=== PATIENT | female | born 1995 ===

== ENCOUNTER 2020-10-17 12:37 | Emergency (ER) | payer MEDICAID, SELFPAY ==
[2020-10-17 12:51] VITALS: BP 141/86; PULSE 110; RESP 18; TEMP 37.2; O2SAT 97; BMI 29.2
[2020-10-17] MEDS: Metoclopramide HCl 10 MG/2 ML VIAL IVPUSH (14:25)
[2020-10-17] MEDS: Acetaminophen 325 MG TABLET 650 MG PO (14:25)
[2020-10-17] MEDS: 0.9 % Sodium Chloride 1,000 ML 999 ML IVCONT (14:25)
[2020-10-17] MEDS: diphenhydrAMINE HCL 50 MG/ML VIAL 25 MG IVPUSH (14:25)
[2020-10-17 14:32] LABS: MANUAL DIFF FLAG NO
[2020-10-17 14:34] LABS: Glucose Urine UA NEG (NEG); Leukocyte Esterase Urine NEG (NEG); Nitrite Urine NEG (NEG); Specific Gravity - Urine 1.025 (1.005-1.025); Urine Blood 1+ (NEG); Urine Ketones >=80 MG/DL (NEG); Urine Protein TRACE MG/DL (NEG-TRACE)
[2020-10-17 14:35] LABS: Appearance Urine HAZY; Basophils Percent Auto 0.2 % (0-2); Color Urine AMBER; Hematocrit 38.9 % (37-47); Hemoglobin 13.4 g/dl (12.0-16.0); Imm Gran Abs Auto 0.03 X10*3/uL (0.00-0.03); Imm Gran Pct Auto 0.5 % (0.0-0.4); Lymphocytes Absolute Auto 1.9 X10*3/uL (1.2-4.9); Mean Corpuscular HGB Conc 34.4 g/dl (31.0-35.0); Mean Corpuscular Volume 75.5 fL (80-98); Mean Platelet Volume 9.4 fL (9.4-12.3); Monocytes Absolute Auto 0.6 X10*3/uL (0.1-1.2); Neutrophils Absolute Auto 3.7 X10*3/uL (2.0-8.3); Neutrophils Percent Auto 59.3 % (45-73); Platelet Count 310 X10*3/uL (160-400); Red Blood Count 5.15 X10*6/uL (4.20-5.50); Red Cell Distribution Width 12.7 % (11.0-16.0); White Blood Count 6.2 X10*3/uL (4.8-10.8)
--- NOTE | 2020-10-17 14:35 | ED.GENADULT ---
HPI - General Adult General Chief complaint: General Medical Stated complaint: fever,nausea Time Seen by Provider: 10/17/20 13:10 History of Present Illness HPI narrative: patient last normal menstrual per aide 4 weeks ago with multiple complaints First complaint is intermittent nausea and vomiting over the last 2 weeks 2nd complaint is she has a history of migraine and her migraine has been triggered with intermittent headache coming and going over the last several days , pattern and head of headache is similar to prior migraine, no thunderclap headache, no worst headache of life 3rd complaint over last several days she has had low-grade fever coming and going with no cough no runny nose no sore throat and she has had a negative COVID test Related Data Previous Rx's Medication Instructions Recorded doxylamine-pyridoxine (vit B6) 1 tab PO DAILY #14 tab 10/17/20 [Diclegis] doxylamine-pyridoxine (vit B6) 1 tab PO DAILY #14 tab 10/17/20 [Diclegis] ondansetron HCl [Zofran] 4 mg PO Q6H PRN #10 tab 10/17/20 ondansetron HCl [Zofran] 4 mg PO Q6H PRN #10 tab 10/17/20 Allergies Allergy/AdvReac Type Severity Reaction Status Date / Time No Known Allergies Allergy Unverified 06/03/20 19:26 [No Known Allergies*] Review of Systems Review of Systems: Positive for headache nausea vomiting fever and chills No dizziness no weakness, no vision changes no neck pain no stiff neck no ear pain no sore throat no runny nose no chest pain no shortness of breath no cough, no abdominal pain but there is nausea and vomiting, no diarrhea, no urinary symptoms no burning with urination no frequency, no leg swelling no calf pain, no numbness or weakness, no rash [facility] Past Medical History Attestation statement: The following information was validated with the patient. [facility] Narrative: Patient is , LMP 4 weeks ago Social History Social History Advance Directives: No Advance Directives Information Provided: No Physical Exam Vital Signs: Vital Signs: Last Vital Signs Temp 98.9 F 10/17/20 12:51 Pulse 110 H 10/17/20 12:51 Resp 18 10/17/20 12:51 BP 141/86 H 10/17/20 12:51 Pulse Ox 97 10/17/20 12:51 Body Mass Index 29.2 General appearance is comfortable cooperative no acute distress The head is normocephalic atraumatic the ears are clear The pharynx is normal in appearance with well-hydrated mucous membranes The neck is supple no meningismus The chest is clear to auscultation bilaterally with full symmetric equal breath sounds The heart rate and rhythm regular, no murmur The abdomen is soft nontender The extremities no edema, full range of motion x4 The skin no rash Neuro is appropriate understanding and conversation, gait is normal, cranial nerves 2-12 are intact as tested, cerebellar and balance are normal, motor is 5/5 x4 and sensation is intact and symmetrical Course Course Course Narrative: COVID testing was negative Patient who is in early 1st weeks of who has been nauseous and vomiting which triggered her migraine which was the same pattern as previous migraines felt significantly better after treatment was tolerating p.o. and was discharged feeling better, headache was gone and she was provided information to obtain care Medical Decision Making Lab Data Lab results reviewed: Yes I reviewed the patient's lab results. Result diagrams: 10/17/20 14:22 10/17/20 14:22 Labs: Lab Results 10/17/20 10/17/20 10/17/20 Range/Units 14:22 14:22 14:22 WBC 6.2 (4.8-10.8) X10*3/uL RBC 5.15 (4.20-5.50) X10*6/uL Hgb 13.4 (12.0-16.0) g/dl Hct 38.9 (37-47) % MCV 75.5 L (80-98) fL MCH 26.0 L (27.0-33.0) pg MCHC 34.4 (31.0-35.0) g/dl RDW 12.7 (11.0-16.0) % Plt Count 310 (160-400) X10*3/uL MPV 9.4 (9.4-12.3) fL Immature Gran % (Auto) 0.5 H (0.0-0.4) % Neut % (Auto) 59.3 (45-73) % Lymph % (Auto) 31.0 (20-40) % [place] % (Auto) 9.0 (2-11) % Eos % (Auto) 0.0 (0-4) % Baso % (Auto) 0.2 (0-2) % Lymph # (Auto) 1.9 (1.2-4.9) X10*3/uL [place] # (Auto) 0.6 (0.1-1.2) X10*3/uL Eos # (Auto) 0.0 (0.0-0.4) X10*3/uL Baso # (Auto) 0.0 (0.0-0.2) X10*3/uL Abs Immat Gran (auto) 0.03 (0.00-0.03) X10*3/uL Absolute Neuts (auto) 3.7 (2.0-8.3) X10*3/uL Absolute Nucleated RBC 0.000 (0.0-0.012) X10*3/uL Nucleated RBC % (auto) 0.0 (0.0-0.2) /100WBC Sodium 136 (135-145) mmol/L Potassium 3.8 (3.3-5.1) mmol/L Chloride 102 (96-108) mmol/L Carbon Dioxide 23 (22-29) mmol/L Anion Gap 15 (12-20) BUN 9 (9-16) mg/dL Creatinine 0.73 (0.5-1.4) mg/dL Estim Creat Clear Calc 121.5 Estimated GFR > 60 Random Glucose 83 (60-115) mg/dL Calcium 9.0 (8.4-10.2) mg/dL Urine Color Urine Appearance Urine pH (5.0-8.0) Ur Specific [place] (1.005-1.025) Urine Protein (NEG-TRACE) MG/DL Urine Glucose (UA) (NEG) MG/DL Urine Ketones (NEG) MG/DL Urine Blood (NEG) Urine Nitrite (NEG) Ur Leukocyte Esterase (NEG) Urine RBC (0) /HPF Urine WBC (0-4) /HPF Ur Squamous Epith Cells /LPF Urine Bacteria /LPF Urine Mucus /LPF Urine Test (NEGATIVE) Coronavirus (PCR) NEGATIVE (Negative) Influenza Type A (PCR) NEGATIVE (Negative) Influenza Type B (PCR) NEGATIVE (Negative) RSV RNA Qual (PCR) NEGATIVE (Negative) 10/17/20 Range/Units 14:22 WBC (4.8-10.8) X10*3/uL RBC (4.20-5.50) X10*6/uL Hgb (12.0-16.0) g/dl Hct (37-47) % MCV (80-98) fL MCH (27.0-33.0) pg MCHC (31.0-35.0) g/dl RDW (11.0-16.0) % Plt Count (160-400) X10*3/uL MPV (9.4-12.3) fL Immature Gran % (Auto) (0.0-0.4) % Neut % (Auto) (45-73) % Lymph % (Auto) (20-40) % [place] % (Auto) (2-11) % Eos % (Auto) (0-4) % Baso % (Auto) (0-2) % Lymph # (Auto) (1.2-4.9) X10*3/uL [place] # (Auto) (0.1-1.2) X10*3/uL Eos # (Auto) (0.0-0.4) X10*3/uL Baso # (Auto) (0.0-0.2) X10*3/uL Abs Immat Gran (auto) (0.00-0.03) X10*3/uL Absolute Neuts (auto) (2.0-8.3) X10*3/uL Absolute Nucleated RBC (0.0-0.012) X10*3/uL Nucleated RBC % (auto) (0.0-0.2) /100WBC Sodium (135-145) mmol/L Potassium (3.3-5.1) mmol/L Chloride (96-108) mmol/L Carbon Dioxide (22-29) mmol/L Anion Gap (12-20) BUN (9-16) mg/dL Creatinine (0.5-1.4) mg/dL Estim Creat Clear Calc Estimated GFR Random Glucose (60-115) mg/dL Calcium (8.4-10.2) mg/dL Urine Color PERRY Urine Appearance HAZY Urine pH 6.0 (5.0-8.0) Ur Specific [place] 1.025 (1.005-1.025) Urine Protein TRACE (NEG-TRACE) MG/DL Urine Glucose (UA) NEG (NEG) MG/DL Urine Ketones >=80 (NEG) MG/DL Urine Blood 1+ H (NEG) Urine Nitrite NEG (NEG) Ur Leukocyte Esterase NEG (NEG) Urine RBC 1-4 (0) /HPF Urine WBC 1-4 (0-4) /HPF Ur Squamous Epith Cells 1+ /LPF Urine Bacteria 1+ /LPF Urine Mucus 1+ /LPF Urine Test POSITIVE H (NEGATIVE) Coronavirus (PCR) (Negative) Influenza Type A (PCR) (Negative) Influenza Type B (PCR) (Negative) RSV RNA Qual (PCR) (Negative) Discharge Plan Discharge Clinical Impression: Hyperemesis gravidarum, Headache Patient Disposition: Home, Self-Care Additional Instructions: Use Tylenol as needed for headache pain or any fevers Follow with midwives or gynecology for care Her COVID test was negative Return any time any worse condition or any concerns Prescriptions: New doxylamine-pyridoxine (vit B6) [Diclegis] 10-10 mg tablet,delayed release (DR/EC) 1 tab PO DAILY Qty: 14 RF: 0 ondansetron HCl [Zofran] 4 mg tablet 4 mg PO Q6H PRN (Reason: nausea and vomiting) Qty: 10 RF: 0 doxylamine-pyridoxine (vit B6) [Diclegis] 10-10 mg tablet,delayed release (DR/EC) 1 tab PO DAILY Qty: 14 RF: 0 ondansetron HCl [Zofran] 4 mg tablet 4 mg PO Q6H PRN (Reason: nausea and vomiting) Qty: 10 RF: 0 Referrals: Stefani Palmer MD [Physician] - 2 days (hyperemesis, care) Stand Alone Forms: Work/School Release Interventions: ED Discharge Assessment Last Done: 10/17/20 15:59 Discharge Date/Time: 10/17/20 16:00
[2020-10-17 14:36] LABS: UPreg QC Valid YES; Urine Pregnancy POSITIVE (NEGATIVE)
[2020-10-17 14:40] LABS: Bacteria Urine 1+ /LPF; Mucus Urine 1+ /LPF; Squamous Epithelial Cell Urine 1+ /LPF
[2020-10-17 14:56] LABS: Anion Gap 15 (12-20); Blood Urea Nitrogen 9 mg/dL (9-16); Carbon Dioxide 23 mmol/L (22-29); Chloride 102 mmol/L (96-108); Creatinine Clr Calc Pharmacy 121.5; Estimated Glomerular Filt Rate > 60; Glucose Random 83 mg/dL (60-115); Potassium 3.8 mmol/L (3.3-5.1); Sodium 136 mmol/L (135-145)
[2020-10-17 15:13] LABS: Influenza A PCR NEGATIVE (Negative); Influenza B PCR NEGATIVE (Negative); Resp Syncy Virus RNA Qual PCR NEGATIVE (Negative); SARS COV2 PCR INHOUSE NEGATIVE (Negative)
== END 2020-10-17 16:00 | disposition home or self-care (01) ==
PROVIDERS: Physician Assistant Medical; Emergency Provider Emergency Medicine; PCP Internal Medicine
DX: O21.0 Mild hyperemesis gravidarum (principal); R50.9 Fever, unspecified; R51.9 Headache, unspecified; Z79.899 Other long term (current) drug therapy; Z20.822 Contact with and (suspected) exposure to COVID-19; Z3A.01 Less than 8 weeks gestation of pregnancy
CPT/HCPCS: 0241U; 36415; 80048; 81001; 81025; 85025; 96361; 96374; 96375; 99283; 99284; J1200; J2765

== ENCOUNTER 2020-10-27 15:24 | Emergency (ER) | payer MEDICAID, SELFPAY ==
--- NOTE | ~2020-10-27 | US_ITS ---
EXAMINATION: US OB transvaginal, US OB <= 14 weeks fetus CLINICAL INFORMATION: Bleeding, cramping TECHNIQUE: Transabdominal and transvaginal images of the pelvis were obtained. FINDINGS: UTERUS: Anteverted. Normal size and contour, measuring 7.2 x 2.7 x 3.3 cm (cervix to fundus x AP x transverse). Uniform, homogeneous endometrium measures 0.7 cm in width. A small 3 mm fluid collection is seen eccentrically in the endometrial canal. No definite decidual reaction.. No yolk sac or embryo. Based on the last menstrual period of 09/10/2020, the clinical age is 6 weeks 5 days, clinical CHARISMA 06/17/2021. RIGHT OVARY: Normal size and echogenicity measuring 2.1 x 1.7 x 1.7 cm. LEFT OVARY: Normal size and echogenicity measuring 2.4 x 1.4 x 2.4 cm. FREE FLUID: No pelvic free fluid. US/US OB transvaginal IMPRESSION: No definite intrauterine identified. There is a small 3 mm fluid collection eccentrically in the endometrial canal but there is no definite decidual reaction. Recommend correlation with the certainty of the patient's dates. Given the positive test, this is considered a of indeterminate location and an ectopic remains a consideration.
--- NOTE | ~2020-10-27 | US_ITS ---
EXAMINATION: US OB transvaginal, US OB <= 14 weeks fetus CLINICAL INFORMATION: Bleeding, cramping TECHNIQUE: Transabdominal and transvaginal images of the pelvis were obtained. FINDINGS: UTERUS: Anteverted. Normal size and contour, measuring 7.2 x 2.7 x 3.3 cm (cervix to fundus x AP x transverse). Uniform, homogeneous endometrium measures 0.7 cm in width. A small 3 mm fluid collection is seen eccentrically in the endometrial canal. No definite decidual reaction.. No yolk sac or embryo. Based on the last menstrual period of 09/10/2020, the clinical age is 6 weeks 5 days, clinical CHARISMA 06/17/2021. RIGHT OVARY: Normal size and echogenicity measuring 2.1 x 1.7 x 1.7 cm. LEFT OVARY: Normal size and echogenicity measuring 2.4 x 1.4 x 2.4 cm. FREE FLUID: No pelvic free fluid. US/US OB <= 14 weeks fetus IMPRESSION: No definite intrauterine identified. There is a small 3 mm fluid collection eccentrically in the endometrial canal but there is no definite decidual reaction. Recommend correlation with the certainty of the patient's dates. Given the positive test, this is considered a of indeterminate location and an ectopic remains a consideration.
[2020-10-27 15:45] VITALS: BP 125/79; PULSE 115; RESP 20; TEMP 36.7; O2SAT 97; BMI 29.2
[2020-10-27 18:17] VITALS: BP 122/85; PULSE 115; RESP 18; TEMP 37; O2SAT 98
--- NOTE | 2020-10-27 18:28 | ED.PREGNANCY ---
HPI - General Chief complaint: Vaginal Bleeding Stated complaint: Vaginal bleeding/6 wks preg Time Seen by Provider: 10/27/20 18:06 Source: patient Mode of arrival: ambulatory Limitations: no limitations History of Present Illness HPI Narrative: 24 y/o female G1 who is currently 7 weeks is presenting to the ED c/o vaginal bleeding and cramping that started about 8 hours ago. She states it started as mild spotting and now the bleeding has increased. No passage of clots or tissue. She reports cramping similar to menstrual cramps. She also reports she has had fevers up to 103 for the last 2 weeks. She has had 4 negative COVID tests and blood workup done twice (last yesterday). She was due to see her OB on Sunday. She called them today with reports of bleeding and cramping and she was told to come to the ER for evaluation. MD Complaint: vaginal bleeding Onset (ago): hour(s) (8) Pain Consistency: intermittent Location: pelvis Severity: moderate Quality: Cramping Relieving factors: none Exacerbating factors: none Associated symptoms: nausea and vaginal bleeding Vaginal discharge: none Vaginal bleeding: heavy Patient : Yes care: followed by OB Related Data Previous Rx's Medication Instructions Recorded doxylamine-pyridoxine (vit B6) 1 tab PO DAILY #14 tab 10/17/20 [Diclegis] doxylamine-pyridoxine (vit B6) 1 tab PO DAILY #14 tab 10/17/20 [Diclegis] ondansetron HCl [Zofran] 4 mg PO Q6H PRN #10 tab 10/17/20 ondansetron HCl [Zofran] 4 mg PO Q6H PRN #10 tab 10/17/20 Allergies Allergy/AdvReac Type Severity Reaction Status Date / Time No Known Allergies Allergy Unverified 06/03/20 19:26 [No Known Allergies*] Review of Systems Review of Systems: Constitutional: + Fever, + Chills Cardiovascular: No Chest Pain, No SOB, No Orthopnea, No Edema Respiratory: No Cough, No Sputum, No Wheezing, No dyspnea Gastrointestinal: No Nausea, No Vomiting, No Diarrhea, + abdominal Pain, No Hematochezia, No Melena Genitourinary: No Dysuria, No Urinary Frequency, No Hematuria, +vaginal bleeding Musculoskeletal: No joint pain, No Myalgias Skin: No Skin Lesions, No rash Neuro: No Weakness, No Numbness, No Dizziness, No Headache Psych: + Anxiety/Panic, No Depression Heme/Lymph: No Bruising, No Lymphadenopathy Endocrine: No Polyuria, No Polydipsia PMF Past Medical History Medical History (Updated 10/27/20 @ 20:38 by NIALL Peter) No known health problems Physical Exam Vital Signs: Vital Signs: Last Vital Signs Temp 99.8 F 10/27/20 20:00 Pulse 119 H 10/27/20 20:00 Resp 18 10/27/20 20:00 BP 134/80 10/27/20 20:00 Pulse Ox 97 10/27/20 20:00 Body Mass Index 29.2 Appearance: Alert. Oriented X3. Anxious and tearful. Eyes: Pupils equal, round and reactive to light. ENT: Pharynx normal. Neck: Normal inspection. Neck supple. CVS: Normal heart rate and rhythm. Pulses normal. Respiratory: No respiratory distress. Breath sounds normal. Abdomen: Soft and nontender. +BS x4 Skin: Skin warm and dry. Normal skin color. Normal skin turgor. No rashes. Extremities: No lower extremity edema. Neuro: Oriented X 3. No motor deficit. No sensory deficit. Course Course Course Narrative: 24 y/o G1 with LMP 12/25 (~7 weeks ) presenting with bleeding and cramping. Probable spontaneous . HCG at outpatient clinic today was 80 --> today is 100 which is more consistent with at 3-4 weeks. Will get OB U/S to assess for IUP or retained products of conception. Reevaluation(s) Reevaluation #1: US showing 3mm fluid collection in endometrial canal but no definite decidual reaction. Given the + test this is considered a of indeterminate location and an ectopic remains a consideration. Doubt ectopic given patient's pain is cramping, central and intermittent similar to menstrual cramps. Will discuss case with Dr. Longoria. Reevaluation #2: Dr. Longoria recommends repeat HCG quant prior to appointment with her OB on Sunday afternoon. Lab slip provided to patient as well as warning signs to prompt return to the ER. She expressed understanding and is stable for discharge. Consultations Consultation #1: OBGYN - Dr. Longoria MDM - OB/Uterine Contractions Lab Data Result diagrams: 10/27/20 18:31 10/27/20 18:31 Labs: Lab Results 10/27/20 10/27/20 10/27/20 Range/Units 17:28 18:31 18:31 WBC 7.3 (4.8-10.8) X10*3/uL RBC 4.99 (4.20-5.50) X10*6/uL Hgb 13.0 (12.0-16.0) g/dl Hct 37.3 (37-47) % MCV 74.7 L (80-98) fL MCH 26.1 L (27.0-33.0) pg MCHC 34.9 (31.0-35.0) g/dl RDW 13.0 (11.0-16.0) % Plt Count 413 H D (160-400) X10*3/uL MPV 9.1 L (9.4-12.3) fL Immature Gran % (Auto) 0.7 H (0.0-0.4) % Neut % (Auto) 54.6 (45-73) % Lymph % (Auto) 35.8 (20-40) % [place] % (Auto) 8.5 (2-11) % Eos % (Auto) 0.3 (0-4) % Baso % (Auto) 0.1 (0-2) % Lymph # (Auto) 2.6 (1.2-4.9) X10*3/uL [place] # (Auto) 0.6 (0.1-1.2) X10*3/uL Eos # (Auto) 0.0 (0.0-0.4) X10*3/uL Baso # (Auto) 0.0 (0.0-0.2) X10*3/uL Abs Immat Gran (auto) 0.05 H (0.00-0.03) X10*3/uL Absolute Neuts (auto) 4.0 (2.0-8.3) X10*3/uL Absolute Nucleated RBC 0.000 (0.0-0.012) X10*3/uL Nucleated RBC % (auto) 0.0 (0.0-0.2) /100WBC PT 14.7 H (10.8-13.0) SEC INR 1.2 H (0.9-1.1) APTT 35.9 (24.1-38.0) SEC Sodium (135-145) mmol/L Potassium (3.3-5.1) mmol/L Chloride (96-108) mmol/L Carbon Dioxide (22-29) mmol/L Anion Gap (12-20) BUN (9-16) mg/dL Creatinine (0.5-1.4) mg/dL Estim Creat Clear Calc Estimated GFR Random Glucose (60-115) mg/dL Lactic Acid (0.5-2.0) mmol/L Calcium (8.4-10.2) mg/dL Beta HCG, Quant 103 mIU/mL Urine Color Urine Appearance Urine pH (5.0-8.0) Ur Specific [place] (1.005-1.025) Urine Protein (NEG-TRACE) MG/DL Urine Glucose (UA) (NEG) MG/DL Urine Ketones (NEG) MG/DL Urine Blood (NEG) Urine Nitrite (NEG) Ur Leukocyte Esterase (NEG) Urine RBC (0) /HPF Urine WBC (0-4) /HPF Ur Squamous Epith Cells /LPF Urine Bacteria /LPF Urine Test (NEGATIVE) Blood Type Antibody Screen 10/27/20 10/27/20 10/27/20 Range/Units 18:31 18:33 18:45 WBC (4.8-10.8) X10*3/uL RBC (4.20-5.50) X10*6/uL Hgb (12.0-16.0) g/dl Hct (37-47) % MCV (80-98) fL MCH (27.0-33.0) pg MCHC (31.0-35.0) g/dl RDW (11.0-16.0) % Plt Count (160-400) X10*3/uL MPV (9.4-12.3) fL Immature Gran % (Auto) (0.0-0.4) % Neut % (Auto) (45-73) % Lymph % (Auto) (20-40) % [place] % (Auto) (2-11) % Eos % (Auto) (0-4) % Baso % (Auto) (0-2) % Lymph # (Auto) (1.2-4.9) X10*3/uL [place] # (Auto) (0.1-1.2) X10*3/uL Eos # (Auto) (0.0-0.4) X10*3/uL Baso # (Auto) (0.0-0.2) X10*3/uL Abs Immat Gran (auto) (0.00-0.03) X10*3/uL Absolute Neuts (auto) (2.0-8.3) X10*3/uL Absolute Nucleated RBC (0.0-0.012) X10*3/uL Nucleated RBC % (auto) (0.0-0.2) /100WBC PT (10.8-13.0) SEC INR (0.9-1.1) APTT (24.1-38.0) SEC Sodium 137 (135-145) mmol/L Potassium 4.1 (3.3-5.1) mmol/L Chloride 102 (96-108) mmol/L Carbon Dioxide 24 (22-29) mmol/L Anion Gap 15 (12-20) BUN 9 (9-16) mg/dL Creatinine 0.75 (0.5-1.4) mg/dL Estim Creat Clear Calc 118.2 Estimated GFR > 60 Random Glucose 93 (60-115) mg/dL Lactic Acid 0.8 (0.5-2.0) mmol/L Calcium 9.0 (8.4-10.2) mg/dL Beta HCG, Quant mIU/mL Urine Color YELLOW Urine Appearance HAZY Urine pH 5.5 (5.0-8.0) Ur Specific [place] 1.025 (1.005-1.025) Urine Protein TRACE (NEG-TRACE) MG/DL Urine Glucose (UA) NEG (NEG) MG/DL Urine Ketones NEG (NEG) MG/DL Urine Blood 3+ H (NEG) Urine Nitrite NEG (NEG) Ur Leukocyte Esterase NEG (NEG) Urine RBC 15-29 H (0) /HPF Urine WBC 0 (0-4) /HPF Ur Squamous Epith Cells 1+ /LPF Urine Bacteria 1+ /LPF Urine Test POSITIVE H (NEGATIVE) Blood Type Antibody Screen 10/27/20 Range/Units 18:45 WBC (4.8-10.8) X10*3/uL RBC (4.20-5.50) X10*6/uL Hgb (12.0-16.0) g/dl Hct (37-47) % MCV (80-98) fL MCH (27.0-33.0) pg MCHC (31.0-35.0) g/dl RDW (11.0-16.0) % Plt Count (160-400) X10*3/uL MPV (9.4-12.3) fL Immature Gran % (Auto) (0.0-0.4) % Neut % (Auto) (45-73) % Lymph % (Auto) (20-40) % [place] % (Auto) (2-11) % Eos % (Auto) (0-4) % Baso % (Auto) (0-2) % Lymph # (Auto) (1.2-4.9) X10*3/uL [place] # (Auto) (0.1-1.2) X10*3/uL Eos # (Auto) (0.0-0.4) X10*3/uL Baso # (Auto) (0.0-0.2) X10*3/uL Abs Immat Gran (auto) (0.00-0.03) X10*3/uL Absolute Neuts (auto) (2.0-8.3) X10*3/uL Absolute Nucleated RBC (0.0-0.012) X10*3/uL Nucleated RBC % (auto) (0.0-0.2) /100WBC PT (10.8-13.0) SEC INR (0.9-1.1) APTT (24.1-38.0) SEC Sodium (135-145) mmol/L Potassium (3.3-5.1) mmol/L Chloride (96-108) mmol/L Carbon Dioxide (22-29) mmol/L Anion Gap (12-20) BUN (9-16) mg/dL Creatinine (0.5-1.4) mg/dL Estim Creat Clear Calc Estimated GFR Random Glucose (60-115) mg/dL Lactic Acid (0.5-2.0) mmol/L Calcium (8.4-10.2) mg/dL Beta HCG, Quant mIU/mL Urine Color Urine Appearance Urine pH (5.0-8.0) Ur Specific [place] (1.005-1.025) Urine Protein (NEG-TRACE) MG/DL Urine Glucose (UA) (NEG) MG/DL Urine Ketones (NEG) MG/DL Urine Blood (NEG) Urine Nitrite (NEG) Ur Leukocyte Esterase (NEG) Urine RBC (0) /HPF Urine WBC (0-4) /HPF Ur Squamous Epith Cells /LPF Urine Bacteria /LPF Urine Test (NEGATIVE) Blood Type O Positive Antibody Screen NEGATIVE Critical Care Time Critical Care Time Critical Care Time: No Discharge Plan Discharge Clinical Impression: Threatened Patient Disposition: Home, Self-Care Instructions: Threatened Miscarriage (ED) Additional Instructions: Follow up with your [employer] PRO[employer] MANAGER Sunday as schedule. Your hormone today was 103. It is important to trend this level - recommend getting a repeat level tomorrow so your doctor can have this information for your appointment. Lab slip was provided for the lab here. Call your doctor in the morning, they may want blood drawn at their clinic. If you have worsening pain come back to the ER for further evaluation of possible ectopic . Prescriptions: No Action doxylamine-pyridoxine (vit B6) [Diclegis] 10-10 mg tablet,delayed release (DR/EC) 1 tab PO DAILY Qty: 14 RF: 0 ondansetron HCl [Zofran] 4 mg tablet 4 mg PO Q6H PRN (Reason: nausea and vomiting) Qty: 10 RF: 0 doxylamine-pyridoxine (vit B6) [Diclegis] 10-10 mg tablet,delayed release (DR/EC) 1 tab PO DAILY Qty: 14 RF: 0 ondansetron HCl [Zofran] 4 mg tablet 4 mg PO Q6H PRN (Reason: nausea and vomiting) Qty: 10 RF: 0 Interventions: ED Discharge Assessment Last Done: 10/27/20 20:52 Discharge Date/Time: 10/27/20 20:53
[2020-10-27 18:31] LABS: HCG Quantitative 103 mIU/mL
[2020-10-27 18:37] LABS: MANUAL DIFF FLAG NO
[2020-10-27 18:39] LABS: Glucose Urine UA NEG (NEG); Leukocyte Esterase Urine NEG (NEG); Nitrite Urine NEG (NEG); PH 5.5 (5.0-8.0); Specific Gravity - Urine 1.025 (1.005-1.025); Urine Blood 3+ (NEG); Urine Ketones NEG (NEG); Urine Protein TRACE MG/DL (NEG-TRACE)
[2020-10-27 18:40] LABS: Basophils Percent Auto 0.1 % (0-2); Eosinophils Percent Auto 0.3 % (0-4); Hematocrit 37.3 % (37-47); Imm Gran Abs Auto 0.05 X10*3/uL (0.00-0.03); Imm Gran Pct Auto 0.7 % (0.0-0.4); Lymphocytes Absolute Auto 2.6 X10*3/uL (1.2-4.9); Lymphocytes Percent Auto 35.8 % (20-40); Mean Corpuscular HGB Conc 34.9 g/dl (31.0-35.0); Mean Corpuscular Hemoglobin 26.1 pg (27.0-33.0); Mean Corpuscular Volume 74.7 fL (80-98); Mean Platelet Volume 9.1 fL (9.4-12.3); Monocytes Absolute Auto 0.6 X10*3/uL (0.1-1.2); Monocytes Percent Auto 8.5 % (2-11); Neutrophils Percent Auto 54.6 % (45-73); Platelet Count 413 X10*3/uL (160-400); Red Blood Count 4.99 X10*6/uL (4.20-5.50); White Blood Count 7.3 X10*3/uL (4.8-10.8)
[2020-10-27 18:42] LABS: Appearance Urine HAZY; Color Urine YELLOW; UPreg QC Valid YES; Urine Pregnancy POSITIVE (NEGATIVE)
[2020-10-27 18:47] LABS: INTERNATIONAL NORM RATIO 1.2 (0.9-1.1); Prothrombin Time 14.7 SEC (10.8-13.0)
[2020-10-27 18:47] LABS: Bacteria Urine 1+ /LPF; Squamous Epithelial Cell Urine 1+ /LPF; WBC Urine 0 /HPF (0-4)
[2020-10-27 18:49] LABS: Partial Thromboplastin Time 35.9 SEC (24.1-38.0)
[2020-10-27 19:03] LABS: Anion Gap 15 (12-20); Blood Urea Nitrogen 9 mg/dL (9-16); Carbon Dioxide 24 mmol/L (22-29); Chloride 102 mmol/L (96-108); Creatinine Clr Calc Pharmacy 118.2; Estimated Glomerular Filt Rate > 60; Glucose Random 93 mg/dL (60-115); Potassium 4.1 mmol/L (3.3-5.1); Sodium 137 mmol/L (135-145)
[2020-10-27 19:14] LABS: Lactic Acid 0.8 mmol/L (0.5-2.0)
[2020-10-27] MEDS: Acetaminophen 325 MG TABLET 975 MG PO (19:55)
[2020-10-27 20:00] VITALS: BP 134/80; PULSE 119; RESP 18; TEMP 37.7; O2SAT 97
--- NOTE | 2020-10-27 20:19 | PM.GYNCN ---
CHLORINE CELL TENDER - CN: HPI Data of Consult Consult date: 10/27/20 Primary Care Provider: Harriet Varma MD Consult Narrative Narrative: Consulted by NIALL Peter on Rxoana Mcginnis is a 24 year old female who presented emergency room with abdominal cramping and mild vaginal bleeding. According to the patient she had an HCG done in the office today was 80 repeat hCG in the emergency room was 100, H and H within normal ultrasound no evidence of intrauterine or adnexal masses could not rule out ectopic cc:: CC: VOCATIONAL PSYCHOLOGIST - Review of Systems Review of Systems ROS Unobtainable: All systems reviewed & are unremarkable except as noted in HPI and below Cardiovascular: Denies Palpatations, Loss of consciousness and Chest pain Respiratory: Denies Cough, Wheezing and Shortness of breath Musculoskeletal: Denies Low back pain Gastrointestinal: Denies Heartburn, Constipation, Diarrhea, Nausea and Vomiting Genitourinary: Denies Pain with urination, Burning with urination and Urinary frequency Neurological: Denies Migranes Psychological: Denies Depression OB [facility] Past Medical History Medical History (Updated 10/27/20 @ 20:23 by Joe Longoria MD) No known health problems Social History Social History Smoked in Last 30 Days: No Use of substances other than those prescribed or required for medical reasons: No Advance Directives: No Advance Directives Information Provided: Yes Meds Allergies Allergy/AdvReac Type Severity Reaction Status Date / Time No Known Allergies Allergy Unverified 06/03/20 19:26 [No Known Allergies*] CHLORINE CELL TENDER Physical Exam Vitals Vital signs: Temp Pulse Resp BP Pulse Ox 99.8 F 119 H 18 134/80 97 10/27/20 20:00 10/27/20 20:00 10/27/20 20:00 10/27/20 20:00 10/27/20 20:00 Body Mass Index 29.2 CHLORINE CELL TENDER - Results Labs CBC & Chem 7: 10/27/20 18:31 10/27/20 18:31 Labs: Short CBC 10/27/20 Range/Units 18:31 WBC 7.3 (4.8-10.8) X10*3/uL Hgb 13.0 (12.0-16.0) g/dl Hct 37.3 (37-47) % Plt Count 413 H D (160-400) X10*3/uL BMP 10/27/20 18:31 Sodium 137 Potassium 4.1 Chloride 102 Carbon Dioxide 24 BUN 9 Creatinine 0.75 Calcium 9.0 Urine 10/27/20 Range/Units 18:33 Urine Color YELLOW Urine Appearance HAZY Urine pH 5.5 (5.0-8.0) Ur Specific [place] 1.025 (1.005-1.025) Urine Protein TRACE (NEG-TRACE) MG/DL Urine Glucose (UA) NEG (NEG) MG/DL Urine Test POSITIVE H (NEGATIVE) Antibody Screen Antibody Screen NEGATIVE 10/27/20 18:45 Assessment and Plan (1) Early stage of : Status: Acute Discussed this case with NIALL Proctor, recommended repeat hCG in 48 hours and follow up in OBGYN office, SAB and ectopic warnings to be given the patient she is to call cramping vaginal bleeding or abdominal pain occurs. If hCG is going down it is consistent with SAB if it is going follow-up hCG with the rate of rise to rule out ectopic . Blood type is positive.
== END 2020-10-27 20:53 | disposition home or self-care (01) ==
PROVIDERS: Physician Assistant; Emergency Provider Emergency Medicine; PCP Specialist
DX: O20.0 Threatened abortion (principal); Z3A.01 Less than 8 weeks gestation of pregnancy
CPT/HCPCS: 36415; 76801; 76817; 80048; 81001; 81025; 83605; 84702; 85025; 85610; 85730; 86850; 86900; 86901; 87040; 99283; 99284

== ENCOUNTER 2021-02-23 22:43 | Emergency (ER) | payer MEDICAID, SELFPAY ==
--- NOTE | 2021-02-23 | ECG_ITS ---
Test Reason : CHEST PAIN Blood Pressure : / mmHG Vent. Rate : 117 BPM Atrial Rate : 117 BPM P-R Int : 128 ms QRS Dur : 072 ms QT Int : 314 ms P-R-T Axes : 058 083 024 degrees QTc Int : 438 ms Sinus tachycardia Otherwise normal ECG No previous ECGs available Referred By: Spencer Meyer Electronically Signed By:MAUDE MCLAIN MD
[2021-02-23 23:33] VITALS: BP 127/72; PULSE 106; RESP 18; TEMP 37.2; O2SAT 100; BMI 25.7
--- NOTE | 2021-02-24 01:24 | ED_ITS ---
HPI - Extremity Injury (Lower) General Chief Complaint: Extremity Injury, Lower Stated Complaint: lupus flare up Time Seen by Provider: 02/24/21 01:24 Source: patient Mode of arrival: ambulatory Limitations: no limitations History of Present Illness HPI Narrative: Patient with lupus panniculitis with known history. She has had these flares before. Now with large area to her left calf that is swollen and painfult Severity: moderate Relieving factors: nothing Exacerbating factors: nothing Related Data Previous Rx's Medication Instructions Recorded doxylamine-pyridoxine (vit B6) 1 tab PO DAILY #14 tab 10/17/20 [Diclegis] doxylamine-pyridoxine (vit B6) 1 tab PO DAILY #14 tab 10/17/20 [Diclegis] ondansetron HCl [Zofran] 4 mg PO Q6H PRN #10 tab 10/17/20 ondansetron HCl [Zofran] 4 mg PO Q6H PRN #10 tab 10/17/20 prednisone 60 mg PO DAILY #30 tab 02/24/21 Allergies Allergy/AdvReac Type Severity Reaction Status Date / Time No Known Allergies Allergy Unverified 06/03/20 19:26 [No Known Allergies*] Review of Systems Constitutional: Constitutional: Reports no additional constitutional complain ts Eyes: Eyes: Reports no additional eye complaints ENT: Denies dizziness Cardiovascular: Cardiovascular: Reports no additional cardiovascular complaints Respiratory: Respiratory: Reports as per HPI Gastrointestinal: Gastrointestinal: Reports no additional gastrointestinal complaints Genitourinary: Genitourinary: Reports no additional female genitourinary complaints Musculoskeletal: Musculoskeletal: Reports no additional musculoskeletal complaints Integumentary/Breasts: Skin/Breast: Denies rash Neurologic: Reports system reviewed and no additional complaints, except as documented, Denies dizziness and Denies Sensory deficit (Neuro) Psychiatric: Psychiatric: Denies anxiety PMFSH Past Medical History Medical History No known health problems Social History Social History Advance Directives: No Advance Directives Information Provided: No Patient : No Physical Exam Vital Signs: Vital Signs: Last Vital Signs Temp 99.0 F 02/23/21 23:33 Pulse 106 H 06/09/21 23:33 Resp 18 02/23/21 23:33 BP 127/72 02/23/21 23:33 Pulse Ox 100 02/23/21 23:33 Body Mass Index 25.7 Const: General: healthy appearing Nutritional Appearance: average body habitus Orientation/consciousness: oriented to person and patient oriented x3 Limitations: no limitations HENMT: Head: Yes normal to inspection Ears: external ears normal General nose exam: Normal external nose present Mouth: Normal oral and palatal mucosa present and oropharynx normal Throat: Yes posterior oropharynx normal Eyes: General: appearance normal, both eyes and all related structures Neck: Other: supple Neck: Yes normal visual inspection Chest: Chest palpation & inspection: normal inspection of the chest Resp: Auscultation: clear to auscultation bilaterally Cardio: Jugular venous distension: no JVD Rate: regular rate Rhythm: regular rhythm Heart sounds: S1 normal heart sound present and S2 normal heart sound present GI: Inspection: Yes normal to inspection Palpation (GI): Soft to palpation, nontender and No hepatosplenomegaly present Auscultation: normal bowel sounds : General: Yes no CVA tenderness Back/Spine/Pelvis: Back: no CVA tenderness Skin: Other: Induration of right calf, right shoulder, buttock and thighs. areas are tender and violacious Lesions: lesion noted Rashes: rashes noted Neuro: General: oriented to person and patient oriented x3 Cranial nerves: Yes CN's II-XII intact bilaterally Motor exam (neuro): 5/5 motor strength present throughout Sensory Exam: No Sensory deficit (Neuro) Extrem: General: Yes normal to inspection Psych: Appearance: grossly normal MDM - Extremity Injury (Lower) ECG Data Attestation: I personally reviewed and interpreted this ECG as follows: Interpretation: sinus tachycardia rate 115, no st or twave changes Discharge Plan Discharge Clinical Impression: Lupus (systemic lupus erythematosus) Qualifiers: Systemic lupus erythematosus type: other Systemic lupus erythematosus organ involvement: other Qualified Code(s): M32.19 - Other organ or system involvement in systemic lupus erythematosus Patient Disposition: Home, Self-Care Instructions: Lupus Erythematosus (DC) Prescriptions: New prednisone 20 mg tablet 60 mg PO DAILY Qty: 30 RF: 0 No Action doxylamine-pyridoxine (vit B6) [Diclegis] 10-10 mg tablet,delayed release (DR/EC) 1 tab PO DAILY Qty: 14 RF: 0 ondansetron HCl [Zofran] 4 mg tablet 4 mg PO Q6H PRN (Reason: nausea and vomiting) Qty: 10 RF: 0 doxylamine-pyridoxine (vit B6) [Diclegis] 10-10 mg tablet,delayed release (DR/EC) 1 tab PO DAILY Qty: 14 RF: 0 ondansetron HCl [Zofran] 4 mg tablet 4 mg PO Q6H PRN (Reason: nausea and vomiting) Qty: 10 RF: 0 Referrals: Jorge Varma MD [Primary Care Provider] - 2 days
[2021-02-24] MEDS: predniSONE 20 MG TABLET 60 MG PO (01:58)
== END 2021-02-24 02:07 | disposition home or self-care (01) ==
PROVIDERS: Emergency Provider Emergency Medicine; PCP Internal Medicine
DX: M32.19 Other organ or system involvement in systemic lupus erythematosus (principal); R00.0 Tachycardia, unspecified
CPT/HCPCS: 93005; 99283

== ENCOUNTER 2022-01-08 17:26 | Emergency (ER) | payer MEDICAID, SELFPAY ==
[2022-01-08 17:33] VITALS: BP 139/79; PULSE 84; RESP 18; TEMP 36.9; O2SAT 96; BMI 28.3
[2022-01-08 20:29] VITALS: BP 137/74; PULSE 90; RESP 16; TEMP 37.4; O2SAT 100
--- NOTE | 2022-01-08 20:36 | ED.HA ---
HPI - Headache General Chief Complaint: Headache Stated Complaint: migraines for 3 days/dizziness Time Seen by Provider: 01/08/22 20:36 Source: patient Mode of arrival: ambulatory Limitations: no limitations History of Present Illness HPI Narrative: Patient with History of lupus and migraine headache been having headache for last 3 days associated with nausea vomited 2 time today no fever no respiratory symptom no chest pain no abdominal pain no urinary symptoms no joint pains Related Data Previous Rx's Medication Instructions Recorded doxylamine 10 mg-pyridoxine (vit 1 tab PO DAILY #14 tab 10/17/20 B6) 10 mg tablet,delayed release (Diclegis) doxylamine 10 mg-pyridoxine (vit 1 tab PO DAILY #14 tab 10/17/20 B6) 10 mg tablet,delayed release (Diclegis) ondansetron HCl 4 mg tablet 4 mg PO Q6H PRN #10 tab 10/17/20 (Zofran) ondansetron HCl 4 mg tablet 4 mg PO Q6H PRN #10 tab 10/17/20 (Zofran) prednisone 20 mg tablet 60 mg PO DAILY #30 tab 02/24/21 gezxtxkxfo-ssyglpmvsgtpn-oiikezhf 1 cap PO Q6H PRN #20 cap 01/08/22 50 mg-300 mg-40 mg capsule (Fioricet) Allergies Allergy/AdvReac Type Severity Reaction Status Date / Time No Known Allergies Allergy Unverified 01/08/22 17:33 [No Known Allergies*] Review of Systems Review of Systems: Yes all other systems are reviewed and are negative PMFSH Past Medical History Medical History Lupus No known health problems Social History Social History Alcohol intake: current Alcohol intake frequency: holidays/special occasions only Patient Tobacco Use Status: Never used Tobacco Use of substances other than those prescribed or required for medical reasons: Yes Substance Use Type: Marijuana Substance Use Frequency: Occasionally Advance Directives: No Advance Directives Information Provided: No Physical Exam Vital Signs: Vital Signs: Last Vital Signs Temp 99.3 F 01/08/22 20:29 Pulse 90 01/08/22 20:29 Resp 16 01/08/22 20:29 BP 137/74 01/08/22 20:29 Pulse Ox 100 01/08/22 20:29 BMI result Body Mass Index 28.3 Appearance: Alert. Oriented X3. No acute distress. Eyes: PERRLA, No Nystagmus ENT: Pharynx normal. Oral Mucosa moist no temporal artery tenderness Neck: Normal inspection. Neck supple. CVS: Normal heart rate and rhythm. Pulses normal. Respiratory: No respiratory distress. Equal air entry bilateral, no wheezing/rales/rhonchi Abdomen: Soft and nontender. Bowel sounds are present, Skin: Skin warm and dry. Normal skin color. Normal skin turgor. Extremities: No lower extremity edema. No calf tenderness Neuro: Oriented X 3. No motor deficit. No sensory deficit.No cerebellar signs , cranial nerves II-XII intact MDM - Headache MDM Narrative Medical decision making narrative: Patient feeling much better now still seeing the IV fluids will discharge her home once the fluids finished Lab Data Attestation: I reviewed the patient's lab results. Labs: Lab Results 01/08/22 01/08/22 Range/Units 21:32 21:33 Urine Color YELLOW Urine Appearance CLEAR Urine pH 6.0 (5.0-8.0) Ur Specific [place] >= 1.030 H (1.005-1.025) Urine Protein 1+ H (NEG-TRACE) MG/DL Urine Glucose (UA) NEG (NEG) MG/DL Urine Ketones 40 (NEG) MG/DL Urine Blood NEG (NEG) Urine Nitrite NEG (NEG) Ur Leukocyte Esterase NEG (NEG) Urine RBC 1-4 (0) /HPF Urine WBC 1-4 (0-4) /HPF Ur Squamous Epith Cells 2+ /LPF Urine Bacteria 4+ /LPF Urine Mucus 2+ /LPF Urine Test NEGATIVE (NEGATIVE) Discharge Plan Discharge Clinical Impression: Migraine Patient Disposition: Home, Self-Care Instructions: Migraine Headache (ED) Additional Instructions: Rest at home Medicine as advised Follow with PCP if not better Prescriptions: New kpnvneacyw-dpapqsnmcajsq-qdve [Fioricet] 50-300-40 mg capsule 1 cap PO Q6H PRN (Reason: headache) Qty: 20 0RF No Action doxylamine-pyridoxine (vit B6) [Diclegis] 10-10 mg tablet,delayed release (DR/EC) 1 tab PO DAILY Qty: 14 0RF ondansetron HCl [Zofran] 4 mg tablet 4 mg PO Q6H PRN (Reason: nausea and vomiting) Qty: 10 0RF doxylamine-pyridoxine (vit B6) [Diclegis] 10-10 mg tablet,delayed release (DR/EC) 1 tab PO DAILY Qty: 14 0RF ondansetron HCl [Zofran] 4 mg tablet 4 mg PO Q6H PRN (Reason: nausea and vomiting) Qty: 10 0RF prednisone 20 mg tablet 60 mg PO DAILY Qty: 30 0RF
[2022-01-08] MEDS: Ondansetron ODT 4 MG TAB.RAPDIS TRANSLINGU (21:18)
[2022-01-08] MEDS: Ketorolac Tromethamine 60 MG/2 ML VIAL IM (21:45)
[2022-01-08 21:47] LABS: UPreg QC Valid YES; Urine Pregnancy NEGATIVE (NEGATIVE)
[2022-01-08 21:47] LABS: Appearance Urine CLEAR; Color Urine YELLOW; Glucose Urine UA NEG (NEG); Leukocyte Esterase Urine NEG (NEG); Nitrite Urine NEG (NEG); Specific Gravity - Urine >= 1.030 (1.005-1.025); UACC Culture Trigger NO; Urine Blood NEG (NEG); Urine Ketones 40 MG/DL (NEG); Urine Protein 1+ MG/DL (NEG-TRACE)
[2022-01-08 22:00] LABS: Bacteria Urine 4+ /LPF; Mucus Urine 2+ /LPF; Squamous Epithelial Cell Urine 2+ /LPF
[2022-01-08] MEDS: 0.9 % Sodium Chloride 1,000 ML 999 ML IV (22:53)
[2022-01-08] MEDS: dexAMETHasone sod phosphate 10 MG/ML VIAL IVPUSH (22:54)
[2022-01-08] MEDS: diphenhydrAMINE HCL 50 MG/ML VIAL 25 MG IVPUSH (22:54)
[2022-01-09 00:01] VITALS: BP 132/80; PULSE 86; RESP 16; O2SAT 100
[2022-01-09 00:20] VITALS: BP 126/74; PULSE 86; RESP 20; O2SAT 99
--- NOTE | 2022-01-09 00:20 | PC.NURSE ---
pt discharged, instrutions given, verbalized understanding. pt alert and oriented. left ambulatory independently. denies any pain. IV removed
== END 2022-01-09 00:22 | disposition home or self-care (01) ==
PROVIDERS: Emergency Provider Internal Medicine; PCP Internal Medicine
DX: G43.909 Migraine, unspecified, not intractable, without status migrainosus (principal); Z79.899 Other long term (current) drug therapy
CPT/HCPCS: 81001; 81025; 96361; 96372; 96374; 96375; 99284; J1100; J1200; J1885

== ENCOUNTER 2024-07-24 20:17 | Emergency (ER) | payer MEDICAID, SELFPAY ==
--- NOTE | ~2024-07-24 | XR_ITS ---
EXAMINATION: XR CHEST CLINICAL INFORMATION: Chest pain. COMPARISON: None available. TECHNIQUE: 2 views of the chest were obtained. FINDINGS: The heart is normal in size. Both lungs are clear. No pleural effusion. No pneumothorax. No acute osseous abnormality. XR/XR chest 2V IMPRESSION: No acute cardiopulmonary disease. Electronically signed by: Cortes Anne DO 07/24/2024 10:37 PM [facility] [place]
[2024-07-24 20:24] VITALS: BP 129/80; PULSE 122; RESP 18; TEMP 37.1; O2SAT 98; BMI 28.8
--- NOTE | 2024-07-24 20:27 | ED.GENADULT ---
HPI - General Adult General Chief complaint: Upper Respiratory Symptoms Stated complaint: Laryngitis Time Seen by Provider: 07/24/24 22:09 Source: patient, RN notes reviewed and old records reviewed Mode of arrival: ambulatory Limitations: no limitations History of Present Illness ED Provider: Ana HPI narrative: 28-year-old female with past medical history significant for lupus presents for evaluation of body aches, subjective fevers and chills. Patient reports that she was diagnosed with lupus about 2 years ago. She does follow with rheumatology. She has been on hydroxychloroquine for the last 2 years but discontinued this about 2 months ago at the advice of her dye box operator. She reports over last 24 hours she has had body aches, subjective fevers and chills, left-sided chest pain, shortness of breath and loss of voice She reports that she had similar symptoms about a year ago when she was told that she had a lupus flare and reports that she feels similar She denies any sick contacts. She has no other complaints or concerns at this time The patient reports that she has restarted her hydroxychloroquine today as her dye box operator told her to restarted if she starts to feel unwell Related Data Previous Rx's ?Medication ?Instructions ?Recorded doxylamine 10 mg-pyridoxine (vit 1 tab PO DAILY #14 tabs 10/17/20 B6) 10 mg tablet,delayed release (Diclegis) doxylamine 10 mg-pyridoxine (vit 1 tab PO DAILY #14 tabs 10/17/20 B6) 10 mg tablet,delayed release (Diclegis) ondansetron HCl 4 mg tablet 4 mg PO Q6H PRN nausea and 10/17/20 (Zofran) vomiting #10 tabs ondansetron HCl 4 mg tablet 4 mg PO Q6H PRN nausea and 10/17/20 (Zofran) vomiting #10 tabs prednisone 20 mg tablet 60 mg (3 x 20 mg) PO DAILY #30 tabs 02/24/21 odyinjqcla-lifzhgqnjgmnw-qhxkourq 1 cap PO Q6H PRN headache #20 caps 01/08/22 50 mg-300 mg-40 mg capsule (Fioricet) prednisone 20 mg tablet 20 mg PO DAILY #5 tabs 07/24/24 Allergies Allergy/AdvReac Type Severity Reaction Status Date / Time No Known Allergies Allergy Verified 07/24/24 20:26 [No Known Allergies*] Review of Systems Constitutional: Constitutional: Reports body ache(s), Denies chills, Reports fatigue, Reports fever(s), Reports headache(s) and Denies snoring Eyes: Eyes: Denies blurry vision ENT: Denies vertigo, Denies dizziness and Reports headache(s) Cardiovascular: Cardiovascular: Reports chest pain and Reports dyspnea Respiratory: Respiratory: Reports cough, Reports dyspnea, Denies snoring, Denies stridor and Denies wheezing Gastrointestinal: Gastrointestinal: Denies abdominal pain, Reports diarrhea, Denies nausea and Denies vomiting Musculoskeletal: Musculoskeletal: Denies back pain and Reports myalgias Integumentary/Breasts: Skin/Breast: Denies rash Neurologic: Denies vertigo, Denies dizziness and Reports headache(s) Psychiatric: Psychiatric: Denies anxiety Endocrine: Endocrine: Reports fatigue Allergic/Immunologic: Allergic/Immunologic: Denies wheezing PMFSH Past Medical History Medical History Lupus No known health problems Social History Social History Alcohol intake: never Patient Tobacco Use Status: Never used Tobacco Substance Use Type: Marijuana Physical Exam ED Vital Signs: Vital Signs - 24 hr 07/24/24 20:24 07/24/24 22:04 Temperature 98.8 F 98.1 F Pulse Rate 122 H 93 Respiratory Rate 18 16 Blood Pressure 129/80 119/81 Pulse Oximetry 98 100 Oxygen Delivery Method Room Air Room Air BMI result Body Mass Index 28.8 Const General: healthy appearing, comfortable, no acute distress, alert and awake Nutritional Appearance: well nourished Orientation/consciousness: patient oriented x3 HENMT Head: Yes normocephalic and Yes atraumatic Throat: Yes posterior oropharynx normal Eyes Eyelids: Yes eyelids normal Conjunctivae: conjunctivae normal Sclerae: sclerae normal Corneas: corneas normal Pupils: Equal, round and reactive pupils present EOM: EOMs intact bilaterally Neck Neck: Yes full ROM Resp Effort & Inspection: normal respiratory effort, able to speak in complete sentences, no audible wheezes and not labored Auscultation: clear to auscultation bilaterally Cardio Rate: regular rate Rhythm: regular rhythm GI Inspection: No distended Palpation (GI): Soft to palpation, not firm, nontender, no guarding and not rigid Skin General skin exam: elasticity normal Neuro General: patient oriented x3 Cranial nerves: Yes CN's II-XII intact bilaterally, Yes Equal, round and reactive pupils present and Yes Bilaterally intact EOM present Cognition (Neuro): normal cognition Extrem Other: Moving all extremities well without any obvious deformities Course Course Course Narrative: This is an RME: Additional HPI, ROS, PE not included below will be deferred to primary provider. RME assessment and note performed by: Bianka Brandon PA-C This is a [id number]-female, with a hx of lupus, who presents to the ER with complaints of chest pain, shortness of breath, vomiting, and diarrhea since yesterday. Tylenol at 11AM. Plan: Labs, EKG, chest x-ray, further ER evaluation needed Medical Decision Making Medical Decision Making [facility] Narrative: 28-year-old female presents for evaluation of flu-like symptoms. She reports she feels similar to when she was previously diagnosed with lupus flare. Her labs show a slight leukocytosis with a left shift. Chemistries without any significant abnormalities warranting intervention. The patient is not . Chest x-ray shows no focal infiltrates or pneumonia, she is negative for influenza, COVID-19. Her EKG is sinus tachycardia but otherwise unremarkable, no evidence of ST segment elevation AK. her symptoms are consistent with viral syndrome versus lupus flare, I feel it is appropriate to treat her with a short course of prednisone as this would be indicated in both instances Differential Diagnosis Differential Diagnoses: The differential diagnosis associated with the presentation includes Viral syndrome Pneumonia Laryngitis Bronchitis Lupus flare Lab Data [facility] Lab Attestation statement: I reviewed the patient's lab results. See above 07/24/24 20:53 07/24/24 20:53 Labs: Lab Results 07/24/24 Range/Units 20:53 WBC 12.5 H (4.8-10.8) X10*3/uL RBC 4.91 (4.20-5.50) X10*6/uL Hgb 13.9 (12.0-16.0) g/dl Hct 37.1 (37.0-47.0) % MCV 75.6 L (80.0-98.0) fL MCH 28.3 (27.0-33.0) pg MCHC 37.5 H (31.0-35.0) g/dl RDW 13.0 (11.0-16.0) % Plt Count 331 (160-400) X10*3/uL MPV 10.5 (9.4-12.3) fL Immature Gran % (Auto) 0.4 (0.0-0.4) % Neut % (Auto) 77.2 H (45-73) % Lymph % (Auto) 17.5 L (20-40) % Bartholomew % (Auto) 4.6 (2-11) % Eos % (Auto) 0.1 (0-4) % Baso % (Auto) 0.2 (0-2) % Lymph # (Auto) 2.2 (1.2-4.9) X10*3/uL Bartholomew # (Auto) 0.6 (0.1-1.2) X10*3/uL Eos # (Auto) 0.0 (0.0-0.4) X10*3/uL Baso # (Auto) 0.0 (0.0-0.2) X10*3/uL Abs Immat Gran (auto) 0.05 H (0.00-0.03) X10*3/uL Absolute Neuts (auto) 9.7 H (2.0-8.3) x10*3/uL Absolute Nucleated RBC 0.000 (0.0-0.012) X10*3/uL Nucleated RBC % (auto) 0.0 (0.0-0.2) /100WBC PT 11.7 (10.9-12.4) SEC INR 1.0 (0.9-1.1) Sodium 139 (135-145) mmol/L Potassium 3.5 (3.3-5.1) mmol/L Chloride 108 (96-108) mmol/L Carbon Dioxide 19 L (22-29) mmol/L Anion Gap 16 (12-20) BUN 10 (9-16) mg/dL Creatinine 0.70 (0.5-1.4) mg/dL Estim Creat Clear Calc 121.5 Estimated GFR > 60 Random Glucose 85 (60-115) mg/dL Lactic Acid 1.3 (0.5-2.0) mmol/L Calcium 9.2 (8.4-10.2) mg/dL Magnesium 1.9 (1.6-2.6) mg/dL Total Bilirubin 0.4 (0.0-1.0) mg/dL Direct Bilirubin 0.1 (0.0-0.5) mg/dL AST 34 H (5-31) U/L ALT 26 (0-31) U/L Alkaline Phosphatase 58 (39-117) U/L Troponin I High Sens < 2.7 (<3.5-17.0) ng/L Total Protein 7.5 (6.5-8.0) g/dL Albumin 4.3 (3.5-5.0) g/dL Beta HCG, Quant < 2 mIU/mL Influenza Type A (PCR) NEGATIVE (Negative) Influenza Type B (PCR) NEGATIVE (Negative) RSV RNA Qual (PCR) NEGATIVE (Negative) SARS-CoV-2 RNA (RT-PCR) NEGATIVE (Negative) Independent Interpretation I performed an independent interpretation of an: EKG (Sinus tachycardia) and Plain X-Ray (No focal infiltrates) Radiology Impression Discussion of test interpretation with radiology: I have reviewed the radiologist's reading. Radiologist Impression: FINDINGS: The heart is normal in size. Both lungs are clear. No pleural effusion. No pneumothorax. No acute osseous abnormality. XR/XR chest 2V IMPRESSION: No acute cardiopulmonary disease. Electronically signed by: Cortes Anne DO 07/24/2024 10:37 PM [facility] [place] Discharge Plan Discharge Clinical Impression: Body aches Patient Disposition: Home, Self-Care Instructions: Lupus Erythematosus (DC), Viral Syndrome (ED) Additional Instructions: Your workup in the ER today was reassuring. This includes your labs, viral swabs and chest x-ray. Your symptoms could be related to a virus versus a lupus flare Either way I recommend taking prednisone 20 mg daily for the next 5 days. Continue your hydroxychloroquine and follow-up with your specialist and primary doctor Prescriptions: New prednisone 20 mg tablet 20 mg PO DAILY Qty: 5 0RF No Action doxylamine-pyridoxine (vit B6) [Diclegis] 10-10 mg tablet,delayed release (DR/EC) 1 tab PO DAILY Qty: 14 0RF ondansetron HCl [Zofran] 4 mg tablet 4 mg PO Q6H PRN (Reason: nausea and vomiting) Qty: 10 0RF doxylamine-pyridoxine (vit B6) [Diclegis] 10-10 mg tablet,delayed release (DR/EC) 1 tab PO DAILY Qty: 14 0RF ondansetron HCl [Zofran] 4 mg tablet 4 mg PO Q6H PRN (Reason: nausea and vomiting) Qty: 10 0RF prednisone 20 mg tablet 60 mg PO DAILY Qty: 30 0RF xmowcdkirr-wyzoulvubsznc-dcon [Fioricet] 50-300-40 mg capsule 1 cap PO Q6H PRN (Reason: headache) Qty: 20 0RF Print Language: Welsh
--- NOTE | 2024-07-24 20:28 | ECG_ITS ---
Test Reason : tachy Blood Pressure : / mmHG Vent. Rate : 110 BPM Atrial Rate : 110 BPM P-R Int : 130 ms QRS Dur : 072 ms QT Int : 344 ms P-R-T Axes : 064 079 046 degrees QTc Int : 465 ms Sinus tachycardia Otherwise normal ECG When compared with ECG of 23-FEB-2021 22:54, No significant change was found Referred By: Bianka Brandon Electronically Signed By:MAUDE MCLAIN MD
--- NOTE | 2024-07-24 21:01 | MHC.EDTECH ---
Patient brought into triage area,EKG completed per order ,signed by provider,both sets of blood cultures,labs,sars/flu/rsv obtained and sent to lab. pt brought to X-ray at this time.
[2024-07-24 21:09] LABS: MANUAL DIFF FLAG NO
[2024-07-24 21:12] LABS: Basophils Percent Auto 0.2 % (0-2); Eosinophils Percent Auto 0.1 % (0-4); Hematocrit 37.1 % (37.0-47.0); Hemoglobin 13.9 g/dl (12.0-16.0); Imm Gran Abs Auto 0.05 X10*3/uL (0.00-0.03); Imm Gran Pct Auto 0.4 % (0.0-0.4); Lymphocytes Absolute Auto 2.2 X10*3/uL (1.2-4.9); Lymphocytes Percent Auto 17.5 % (20-40); Mean Corpuscular HGB Conc 37.5 g/dl (31.0-35.0); Mean Corpuscular Hemoglobin 28.3 pg (27.0-33.0); Mean Corpuscular Volume 75.6 fL (80.0-98.0); Mean Platelet Volume 10.5 fL (9.4-12.3); Monocytes Absolute Auto 0.6 X10*3/uL (0.1-1.2); Monocytes Percent Auto 4.6 % (2-11); Neutrophils Absolute Auto 9.7 x10*3/uL (2.0-8.3); Neutrophils Percent Auto 77.2 % (45-73); Platelet Count 331 X10*3/uL (160-400); Red Blood Count 4.91 X10*6/uL (4.20-5.50); White Blood Count 12.5 X10*3/uL (4.8-10.8)
[2024-07-24 21:18] LABS: Prothrombin Time 11.7 SEC (10.9-12.4)
[2024-07-24 21:28] LABS: Lactic Acid 1.3 mmol/L (0.5-2.0)
[2024-07-24 21:35] LABS: Alanine Aminotransferase 26 U/L (0-31); Albumin Level 4.3 g/dL (3.5-5.0); Alkaline Phosphatase 58 U/L (39-117); Anion Gap 16 (12-20); Aspartate Amino Transferase 34 U/L (5-31); Bilirubin Direct 0.1 mg/dL (0.0-0.5); Bilirubin Total 0.4 mg/dL (0.0-1.0); Blood Urea Nitrogen 10 mg/dL (9-16); Calcium 9.2 mg/dL (8.4-10.2); Carbon Dioxide 19 mmol/L (22-29); Chloride 108 mmol/L (96-108); Creatinine Clr Calc Pharmacy 121.5; Estimated Glomerular Filt Rate > 60; Glucose Random 85 mg/dL (60-115); Magnesium 1.9 mg/dL (1.6-2.6); Potassium 3.5 mmol/L (3.3-5.1); Sodium 139 mmol/L (135-145); Total Protein 7.5 g/dL (6.5-8.0)
[2024-07-24 21:36] LABS: HCG Quantitative < 2 mIU/mL; Troponin-I High Sensitivity < 2.7 ng/L (<3.5-17.0)
[2024-07-24 21:48] LABS: Influenza A PCR NEGATIVE (Negative); Influenza B PCR NEGATIVE (Negative); Resp Syncy Virus RNA Qual PCR NEGATIVE (Negative); SARS COV2 PCR INHOUSE NEGATIVE (Negative)
[2024-07-24 22:04] VITALS: BP 119/81; PULSE 93; RESP 16; TEMP 36.7; O2SAT 100
[2024-07-24] MEDS: 0.9 % Sodium Chloride 1,000 ML 999 ML IV (22:52)
[2024-07-24 22:56] VITALS: O2SAT 97
[2024-07-24 22:57] VITALS: PULSE 83
[2024-07-24] MEDS: predniSONE 20 MG TABLET PO (23:47)
[2024-07-24 23:56] VITALS: BP 118/80; PULSE 80; RESP 14; TEMP 36.8; O2SAT 98
== END 2024-07-24 23:57 | disposition home or self-care (01) ==
PROVIDERS: Physician Assistant Medical; Emergency Provider Internal Medicine; PCP Internal Medicine
DX: J04.0 Acute laryngitis (principal); M79.10 Myalgia, unspecified site; R00.0 Tachycardia, unspecified; Z03.818 Encounter for observation for suspected exposure to other biological agents ruled out; Z79.899 Other long term (current) drug therapy
CPT/HCPCS: 0241U; 36415; 71046; 80048; 80076; 83605; 83735; 84484; 84702; 85025; 85610; 87040; 93005; 99283; 99285

== ENCOUNTER → 2024-07-24 20:28 | Outpatient (BNV) | payer MEDICAID, SELFPAY | PROVIDERS: Emergency Provider Internal Medicine; PCP Internal Medicine; Visit Provider Internal Medicine Cardiovascular Disease | DX: R00.0 Tachycardia, unspecified (principal) | CPT/HCPCS: 93010 ==